=== PATIENT | female | born 1945 | race Caucasian/White ===

== ENCOUNTER 2020-11-09 16:07 | Emergency (ER) | payer MEDICARE, OTHER ==
[~2020-11-09] VITALS: Ht 165.1 cm; Wt 89.4 kg
[~2020-11-09 16:07] MED LIST: RENEXA PO; Z PREMPRO PO; Z.0.ATENOLOL25 MG PO; Z.0.BABY ASPIRIN81 M PO; Z.0.LEVOTHYROXINE125 PO; Z.0.OMEPRAZOLE20 M1 PO; Z.0.SIMVASTATIN40 MG PO
== END 2020-11-09 17:12 | disposition home or self-care (01) ==
LOC: FSED 16:28
DX: J06.9 Acute upper respiratory infection, unspecified (principal); N39.0 Urinary tract infection, site not specified; R05 Cough; R09.89 Other specified symptoms and signs involving the circulatory and respiratory systems; R30.0 Dysuria
CPT/HCPCS: 71046; 81003; 93005; 99283